=== PATIENT | male | born 1965 | race Caucasian/White ===

== ENCOUNTER 2022-03-03 12:45 | Emergency (ER) | payer OTHER ==
[~2022-03-03] VITALS: Ht 170.2 cm; Wt 137.2 kg
[~2022-03-03 12:45] MED LIST: ATOR20TA40 PO; CARV12.52 PO; LOSA25TA1 PO
[2022-03-03 13:21] VITALS: BP 152/88
--- NOTE | 2022-03-03 13:25 | NUR ---
PATIENT PRESENTS TO ED WITH HEADACHE AND FLU LIKE SYMPTOMS THAT STARTED YESTERDAY . . DENIES N/V/D; SKIN IS PINK/WARM/DRY; AAOX4 WITH EVEN AND STEADY GAIT; LUNGS CLEAR BL; HR EVEN AND REGULAR; PT DENIES ANY FEVER, CP, SOB, OR COUGH AT THIS TIME; PATIENT STATES PAIN OF 0/10 AT THIS TIME; VSS; . ER MD MADE AWARE OF PT STATUS.
[2022-03-03] MEDS ORDERED: BENZ200C4 PO (13:42)
--- NOTE | 2022-03-03 13:55 | NUR ---
Patient discharged with v/s stable. Written and verbal after care instructions given. Patient alert, oriented and verbalized understanding of instructions. Ambulatory with steady gait. All questions addressed prior to discharge. ID band removed. Patient advised to follow up with PMD. Rx of Benzonatate given. Opportunity to ask questions provided and answered. WORK NOTE HANDED TO PATIENT.
--- NOTE | 2022-03-03 13:57 | NUR ---
The patient's care was reviewed and supervised by Gisselle Adame, RN, RN.
== END 2022-03-03 13:55 | disposition home or self-care (01) ==
LOC: MED 12:45
DX: U07.1 COVID-19 (principal); J06.9 Acute upper respiratory infection, unspecified; R51.9 Headache, unspecified; I10 Essential (primary) hypertension; Z79.899 Other long term (current) drug therapy
CPT/HCPCS: 99283

== ENCOUNTER 2022-04-18 00:04 | Emergency (ER) | payer OTHER ==
[~2022-04-18] VITALS: Ht 170.2 cm; Wt 137.0 kg
[~2022-04-18 00:04] MED LIST changes: +BENZ200C4 PO
[2022-04-18 00:12] VITALS: BP 154/85
--- NOTE | 2022-04-18 00:31 | NUR ---
Patient taken to bed 4.
[2022-04-18] MEDS ORDERED: AZITHROMYCIN 500 MG in DEXTROSE 5% 250 ML IV ONE (00:50)
[2022-04-18] MEDS ORDERED: ALBUTEROL 0.083% 2.5 MG/3 ML NEBU INH ONE (00:50)
--- NOTE | 2022-04-18 01:02 | NUR ---
RT at bedside to give breathing treatment
--- NOTE | 2022-04-18 01:04 | NUR ---
57yo M here for cough x 4 days ago. Awake alert and oriented x 4. Admits to productive cough. Started having shortness of breath this night. Pt c labored breathing. Rhales and wheezing to bilat lung [place]. 5/10 pain to abdomen worse c coughing. 2+ edema to BLE. Fever to 100.5. Changed to gown. Will start IV and draw blood.
[2022-04-18] MEDS ORDERED: AZITHROMYCIN 500 MG INJ VIAL IV ONE (01:05)
[2022-04-18 01:09] LABS: BASOPHILS # (AUTO) 0.2 K/uL (0.00-0.22); BASOPHILS % (AUTO) 1.3 % (0.0-2.0); EOSINOPHILS # (AUTO) 0.3 K/uL (0-0.4); EOSINOPHILS % (AUTO) 2.8 % (0.0-4.0); HEMATOCRIT 46.2 % (36-52); HEMOGLOBIN 15.4 g/dL (12.0-18.0); LYMPHOCYTES # (AUTO) 1.9 K/uL (2.0-11.5); LYMPHOCYTES % (AUTO) 15.8 % (20.5-51.1); MEAN CORPUSCULAR HEMOGLOBIN 30 pg (27-31); MEAN CORPUSCULAR HGB CONC 33 g/dL (33-37); MEAN CORPUSCULAR VOLUME 90.4 fL (80-94); MONOCYTES % (AUTO) 8.1 % (1.7-9.3); NEUTROPHILS # (AUTO) 8.8 K/uL (1.8-7.7); PLATELET COUNT (AUTO) 235 K/uL (140-450); RED BLOOD CELL COUNT(AUTO) 5.11 MIL/uL (4.20-6.10); RED CELL DISTRIBUTION WIDTH 13.4 % (11.6-13.7); WHITE BLOOD COUNT (AUTO) 12.2 K/uL (4.8-10.8)
--- NOTE | 2022-04-18 01:14 | NUR ---
Patient discharged with v/s stable. Written and verbal after care instructions given and explained. Patient verbalized understanding. with . All questions addressed prior to discharge. Advised to follow up with PMD.
[2022-04-18] MEDS ORDERED: ACETAMINOPHEN EXTRA STRENGTH 500 MG TAB PO ONE (01:20)
[2022-04-18 01:26] LABS: ALBUMIN 3.6 g/dL (3.4-5.0); CARBON DIOXIDE 28.1 mmol/L (21-32); CREATININE 0.9 mg/dL (0.6-1.3); POTASSIUM 4.1 mmol/L (3.5-5.1); TOTAL BILIRUBIN 0.5 mg/dL (0.0-1.0)
[2022-04-18] MEDS ORDERED: FUROSEMIDE 100 MG/10 ML VIAL IVP ONE (01:35)
[2022-04-18] MEDS ORDERED: DOXY-690 PO (01:47)
[2022-04-18] MEDS ORDERED: MUC600 PO (01:47)
[2022-04-18] MEDS ORDERED: ALBU0.0912 IH (01:47)
[2022-04-18] MEDS ORDERED: ACET-10509 PO (01:48)
[2022-04-18] MEDS ORDERED: IBUP-2213 PO (01:48)
[2022-04-18 02:14] VITALS: BP 145/75
== END 2022-04-18 01:14 | disposition home or self-care (01) ==
LOC: MED 00:04
DX: J18.9 Pneumonia, unspecified organism (principal); Z20.822 Contact with and (suspected) exposure to COVID-19; I50.9 Heart failure, unspecified; I10 Essential (primary) hypertension; Z79.899 Other long term (current) drug therapy
CPT/HCPCS: 36415; 71045; 80053; 82550; 82553; 83605; 83880; 84484; 85025; 87040; 87426; 87804; 94640; 96365; 96375; 99285; J0456; J1940; J7613

== ENCOUNTER 2023-10-05 21:34 | Inpatient (IN) | payer OTHER ==
[~2023-10-05] VITALS: Ht 170.2 cm; Wt 122.0 kg
[~2023-10-05 21:34] MED LIST changes: +ACET500T99 PO; +ALBU0.0912 IH; +ASPI81CT95 PO; -BENZ200C4 PO; +LOSA-269 PO; -LOSA25TA1 PO
[2023-10-05 22:08] VITALS: BP 174/106; PULSE 74; RESP 16; TEMP 97.8; O2SAT 99
[2023-10-06] VITALS (12 sets, daily range): BP systolic 144–165; BP diastolic 79–101; PULSE 52–65; RESP 17–20; TEMP 97.7–98.5; O2SAT 94–99
[2023-10-06 01:08] LABS: BASOPHILS # (AUTO) 0.1 K/uL (0.00-0.22); BASOPHILS % (AUTO) 1.1 % (0.0-2.0); EOSINOPHILS # (AUTO) 0.2 K/uL (0-0.4); EOSINOPHILS % (AUTO) 3.1 % (0.0-4.0); LYMPHOCYTES # (AUTO) 1.7 K/uL (2.0-11.5); LYMPHOCYTES % (AUTO) 24.6 % (20.5-51.1); MEAN CORPUSCULAR HEMOGLOBIN 31 pg (27-31); MEAN CORPUSCULAR HGB CONC 33 g/dL (33-37); MEAN CORPUSCULAR VOLUME 92.8 fL (80-94); MONOCYTES # (AUTO) 0.5 K/uL (0.8-1.0); MONOCYTES % (AUTO) 6.9 % (1.7-9.3); NEUTROPHILS # (AUTO) 4.4 K/uL (1.8-7.7); NEUTROPHILS % (AUTO) 64.3 % (42.2-75.2); PLATELET COUNT (AUTO) 173 K/uL (140-450); RED BLOOD CELL COUNT(AUTO) 4.85 MIL/uL (4.20-6.10); RED CELL DISTRIBUTION WIDTH 15.2 % (11.6-13.7); WHITE BLOOD COUNT (AUTO) 6.8 K/uL (4.8-10.8)
[2023-10-06 01:19] LABS: CALCIUM 8.9 mg/dL (8.5-10.1); CARBON DIOXIDE 28.2 mmol/L (21-32); CREATININE 1.2 mg/dL (0.6-1.3); POTASSIUM 4.2 mmol/L (3.5-5.1)
[2023-10-06] MEDS ORDERED: LISI40TA12 PO (02:29)
[2023-10-06] MEDS ORDERED: CARV12.52 PO (02:29)
[2023-10-06] MEDS: NITROGLYCERIN 2% 1 GM PKT TP ONE (02:30)
[2023-10-06] MEDS: FUROSEMIDE 20 MG/2 ML VIAL IVP ONE (02:30)
[2023-10-06] MEDS: carvediloL 6.25 MG TAB PO ONE (02:56)
[2023-10-06] MEDS ORDERED: ENOXAPARIN 30 MG/0.3 ML SYR SUBQ ONE (03:10)
[2023-10-06] MEDS: ENOXAPARIN 40 MG/0.4 ML SYR SUBQ ONE (03:10)
[2023-10-06] MEDS: ALBUTEROL SULFATE/IPRATROPIU 3 ML SOL IH PRN (03:47)
[2023-10-06] MEDS: FUROSEMIDE 40 MG/4 ML VIAL IVP SCH (08:37)
[2023-10-06] MEDS: ENOXAPARIN 40 MG/0.4 ML SYR SUBQ SCH (10:23)
[2023-10-06] MEDS: ACETAMINOPHEN 325 MG TAB PO PRN (12:22)
[2023-10-06] MEDS: lisinopriL 20 MG TAB PO SCH (17:04)
[2023-10-06] MEDS: carvediloL 12.5 MG TAB PO SCH (17:04)
[2023-10-07] VITALS: BP 125/72; PULSE 52; RESP 18; TEMP 97.4; O2SAT 93
[2023-10-07 04:00] VITALS: BP 151/86; PULSE 50; RESP 18; TEMP 98; O2SAT 94
[2023-10-07 08:00] VITALS: BP 151/85; PULSE 60; PULSE 61; RESP 18; TEMP 97; O2SAT 97
[2023-10-07] MEDS: lisinopriL 20 MG TAB PO SCH (08:21)
[2023-10-07] MEDS ORDERED: FURO-570 PO (09:58)
[2023-10-07] MEDS ORDERED: CARV12.52 PO (09:58)
[2023-10-07] MEDS ORDERED: LOSA-269 PO (09:58)
[2023-10-07 10:11] VITALS: BP 151/85; PULSE 61; RESP 18; TEMP 97
[2023-10-07 12:00] VITALS: BP 133/79; PULSE 53; PULSE 54; RESP 18; TEMP 98.6; O2SAT 95
== END 2023-10-07 13:12 | disposition home or self-care (01) | DRG 291 ==
LOC: MED 21:34 → MTU 10-06 03:04
PROVIDERS: ADMIT Hospitalist; ATTEND Hospitalist
DX: I11.0 Hypertensive heart disease with heart failure (principal); I50.23 Acute on chronic systolic (congestive) heart failure; E78.5 Hyperlipidemia, unspecified; Z79.899 Other long term (current) drug therapy; Z88.8 Allergy status to other drugs, medicaments and biological substances
CPT/HCPCS: 36415; 71045; 80048; 83880; 84484; 85025; 87081; 93005; 94640; 96374; 99285; J1650; J1940